=== PATIENT | female | born 1965 | race Caucasian/White ===

== ENCOUNTER → 2017-09-02 | Outpatient (CLI) | payer OTHER ==
[~2017-09-02] MED LIST: 1-ME1LIQ OR; ALBU6.7H INH; AMLO2.5T PO; ASPI81CH5 CHEW; COZA100T PO; FISHOIL PO; OMPR20CCR PO; PRAV40TA PO; TRAM50 PO
[2017-09-02 09:56] LABS: AUTOMATED NEUTROPHIL # 4.7 TH/MM3 (1.8-7.7); BASOPHIL % 0.4 % (0.0-2.0); EOSINOPHIL # 0.1 TH/MM3 (0-0.4); EOSINOPHIL % 1.2 % (0.0-4.0); HEMATOCRIT 39.7 % (35.0-46.0); HEMOGLOBIN 13.9 GM/DL (11.6-15.3); LYMPH % 27.9 % (9.0-44.0); LYMPHOCYTE # 2.1 TH/MM3 (1.0-4.8); MEAN CELL VOLUME 88.1 FL (80.0-100.0); MEAN CORPUSCULAR HEMOGLOBIN 30.9 PG (27.0-34.0); MEAN PLATELET VOLUME 8.9 FL (7.0-11.0); MONO % 7.1 % (0.0-8.0); MONOCYTE # 0.5 TH/MM3 (0-0.9); NEUT % 63.4 % (16.0-70.0); PLATELET COUNT 223 TH/MM3 (150-450); RED BLOOD COUNT 4.51 MIL/MM3 (4.00-5.30); RED CELL DISTRIBUTION WIDTH 13.1 % (11.6-17.2); WHITE BLOOD COUNT 7.4 TH/MM3 (4.0-11.0)
[2017-09-02 10:00] LABS: BACTERIA, URINE OCC /hpf; BILIRUBIN, URINE NEG (NEG); BLOOD, URINE LARGE (NEG); GLUCOSE,URINE NEG (NEG); KETONE, URINE NEG (NEG); MUCUS URINE FEW /lpf (OCC); NITRITE,URINE NEG (NEG); SQUAMOUS EPITHELIAL CELL URINE 4 /hpf (0-5); URINE COLOR YELLOW (YELLW/STRAW); URINE LEUKOCYTE ESTERASE TRACE (NEG)
[2017-09-02 10:02] LABS: ALBUMIN 3.4 GM/DL (3.4-5.0); AST (GOT) 6 U/L (15-37); BICARBONATE 30.4 MEQ/L (21.0-32.0); BLOOD UREA NITROGEN 14 MG/DL (7-18); CALCIUM 8.7 MG/DL (8.5-10.1); CHLORIDE 104 MEQ/L (98-107); CHOLESTEROL 219 MG/DL (120-200); CREATININE 0.75 MG/DL (0.50-1.00); GLOMERULAR FILTRATION RATE 81 ML/MIN (>89); GLUCOSE,FASTING 90 MG/DL (74-99); SODIUM (NA) 139 MEQ/L (136-145)
[2017-09-02 10:03] LABS: TRIGLYCERIDES 113 MG/DL (42-150)
[2017-09-02 10:29] LABS: ALKALINE PHOSPHATASE 93 U/L (45-117); ALT (GPT) 14 U/L (10-53); CHOLESTEROL/ HDL RATIO 4.93 RATIO; FERRITIN 34 NG/ML (8-252); FOLATE 16.5 NG/ML (3.1-17.5); FREE T3 2.67 PG/ML (2.18-3.98); FREE T4 1.11 NG/DL (0.76-1.46); HDL CHOLESTEROL 44.4 MG/DL (40.0-60.0); IRON (FE) 39 MCG/DL (50-170); LDL CHOLESTEROL 152 MG/DL (0-99); TOTAL BILIRUBIN ADULT 0.4 MG/DL (0.2-1.0); TOTAL IRON BINDING CAPACITY 301 MCG/DL (250-450); TOTAL PROTEIN 6.7 GM/DL (6.4-8.2)
[2017-09-02 15:58] LABS: HEMOGLOBIN A1C 5.2 % (4.3-6.0)
[2017-09-04 19:52] LABS: THYROID PEROX AB (MICROSOMAL) LESS THAN 1 IU/mL (<9)
[2017-09-04 23:52] LABS: THYROGLOB ABS LESS THAN 1 IU/mL (< OR = 1)
== END ==
LOC: OLAB 06:59
PROVIDERS: ATTEND Family Medicine
DX: I10 Essential (primary) hypertension (principal); E78.2 Mixed hyperlipidemia; M25.50 Pain in unspecified joint; R42 Dizziness and giddiness; E55.9 Vitamin D deficiency, unspecified; N39.0 Urinary tract infection, site not specified; B96.20 Unspecified Escherichia coli [E. coli] as the cause of diseases classified elsewhere
CPT/HCPCS: 80053; 80061; 81001; 82306; 82607; 82728; 82746; 83036; 83540; 83550; 84439; 84443; 84481; 85025; 86376; 86800; 87077; 87086; 87186

== ENCOUNTER → 2017-12-20 | Outpatient (CLI) | DX: I10 Essential (primary) hypertension (principal); E78.2 Mixed hyperlipidemia; R73.09 Other abnormal glucose; M25.50 Pain in unspecified joint; M54.5 Low back pain; E55.9 Vitamin D deficiency, unspecified; D64.9 Anemia, unspecified; R82.99 Other abnormal findings in urine ==